=== PATIENT | male | born 2000 | race Hispanic/Latino ===

== ENCOUNTER 2024-04-28 12:50 | Emergency (ER) | payer OTHER ==
[2024-04-28] MEDS ORDERED: Ibuprofen 200 MG TAB ONE (14:19)
== END 2024-04-28 14:26 | disposition home or self-care (01) ==
LOC: CSHERS 12:50
DX: H60.93 Unspecified otitis externa, bilateral (principal)
CPT/HCPCS: 99282

== ENCOUNTER 2024-11-16 15:55 | Emergency (ER) | payer OTHER, SELFPAY ==
[2024-11-16 18:15] LABS: #Basophils 0.05 10x3/uL (0.0-0.2); #Eosinophils 0.15 10x3/uL (0.0-0.5); #Monocytes 0.68 10x3/uL (0.0-1.1); #Neutrophils 4.74 10x3/uL (1.5-8.4); %Basophils 0.6 % (0.0-2.0); %Eosinophils 1.8 % (0.0-6.0); %Lymphocytes 30.9 % (18.0-47.0); %Monocytes 8.3 % (0.0-10.0); %Neutrophils 58.3 % (40.0-75.0); Hematocrit 46.1 % (38.8-50.0); Hemoglobin 15.6 g/dL (13.5-17.5); Mean Corpuscular HGB CONC 33.8 g/dL (32.0-36.0); Mean Corpuscular Hemoglobin 30.6 pg (27.0-33.0); Mean Corpuscular Volume 90.4 fL (81.2-95.1); Mean Platelet Volume 10.9 fL (7.4-10.4); Platelet Count 290 10x3/uL (150-450); White Blood Cell (WBC) Count 8.15 10x3/uL (3.5-10.5)
[2024-11-16 18:16] LABS: ALT (SGPT) 60 U/L (Less than 45); AST (SGOT) 33 U/L (11-34); Albumin 4.9 g/dL (3.1-4.5); Alkaline Phosphatase 102 U/L (40-110); Anion Gap 15 mmol/L (10-20); BUN (Urea Nitrogen) 15 mg/dL (8.9-20.6); Bilirubin, Total 0.4 mg/dL (0.3-1.2); Calc. Creatinine Clearance 0 mL/min (70-130); Calcium 9.6 mg/dL (7.8-10.44); Carbon Dioxide 23 mmol/L (22-29); Chloride 104 mmol/L (98-107); Estimated GFR 124; Globulin 3.5 g/dL (2.4-3.5); Glucose 86 mg/dL (70-105); Magnesium 2.1 mg/dL (1.6-2.6); Potassium 3.6 mmol/L (3.5-5.1); Protein, Total 8.4 g/dL (6.0-8.3); Sodium 138 mmol/L (136-145)
[2024-11-16 18:20] LABS: Troponin I 0.018 ng/mL (< 0.028)
== END 2024-11-16 18:45 | disposition home or self-care (01) ==
LOC: CSHERS 15:55
DX: R06.02 Shortness of breath (principal); F41.9 Anxiety disorder, unspecified; F17.210 Nicotine dependence, cigarettes, uncomplicated
CPT/HCPCS: 36415; 71045; 80053; 83735; 84443; 84484; 85025; 93005